=== PATIENT | female | born 1970 ===

== ENCOUNTER 2016-05-03 17:26 | Emergency (ER) | payer SELFPAY ==
[2016-05-03 17:51] VITALS: BP 108/55
--- NOTE | 2016-05-04 08:08 | ED Elopement Review ---
ED Pt Elopement review - Call Back decision Pt Call Back Decision: No action required
== END 2016-05-03 18:00 | disposition left against medical advice (07) ==
LOC: ED 17:26
DX: O26.891 Other specified pregnancy related conditions, first trimester (principal); R07.9 Chest pain, unspecified; Z3A.13 13 weeks gestation of pregnancy; Z53.21 Procedure and treatment not carried out due to patient leaving prior to being seen by health care provider
CPT/HCPCS: 93005; 93010